=== PATIENT | male | born 1935 | race Hispanic/Latino ===

== ENCOUNTER 2018-04-27 16:04 | Emergency (ER) | payer MEDICARE ==
[~2018-04-27] VITALS: Ht 172.7 cm; Wt 111.1 kg
[~2018-04-27 16:04] MED LIST: ASPIRIN325 MG PO; FERROUS SULFAT325 MG PO; GLYBURIDE METF PO; Z ALTACE PO; Z.0.ACTOS30 MG PO; Z.0.COUMADIN5 MG PO; Z.0.LASIX20 MG; Z.0.LIPITOR20 MG PO; Z.0.METOPROLOL SUCC5 PO
--- OUTSIDE RECORDS SUMMARY | 2018-04-27 16:07 | XMS REPORT ---
[facility] Address Unknown Phone Unavailable Care Team Providers Care Dsp Engineer Name Role Phone Unavailable Unavailable Problems This patient has no known problems. Allergies, Adverse Reactions, Alerts This patient has no known allergies or adverse reactions. Medications This patient has no known medications. Encounters Start Date/Time End Date/Time Encounter Type Admission Type Attending [facility] Care Department Encounter ID 2018-06-07 00:00:00 2018-06-07 00:00:00 Outpatient [facility] [id number] 2018-04-26 15:04:13 2018-04-26 15:04:13 Outpatient [facility] [id number] 2018-02-14 12:34:30 2018-02-14 12:34:30 Outpatient [facility] [id number] 2017-10-24 14:57:29 2017-10-24 14:57:29 Outpatient [facility] [id number] 2017-09-20 10:42:41 2017-09-20 10:42:41 Outpatient [facility] [id number] 2017-08-09 13:06:54 2017-08-09 13:06:54 Outpatient [facility] [id number] 2017-07-27 12:01:06 2017-07-27 12:01:06 Outpatient [facility] [id number] 2017-07-26 10:56:44 2017-07-26 10:56:44 Outpatient [facility] [id number] 2017-06-01 09:06:41 2017-06-01 09:06:41 Outpatient [facility] [id number] 2017-06-01 08:07:39 2017-06-01 08:07:39 Outpatient [facility] [id number] 2017-05-31 10:26:15 2017-05-31 10:26:15 Outpatient [facility] [id number] 2017-02-16 10:10:15 2017-02-16 10:10:15 Outpatient [facility] [id number] 2017-01-19 07:29:44 2017-01-19 07:29:44 Outpatient [facility] [id number] 2017-01-11 00:00:00 2017-01-11 00:00:00 Outpatient [facility] [id number] 2017-01-10 07:35:08 2017-01-10 07:35:08 Outpatient [facility] [id number] 2017-01-09 07:27:00 2017-01-09 07:27:00 Outpatient [facility] [id number] 2017-01-06 07:35:56 2017-01-06 07:35:56 Outpatient [facility] [id number] 2016-12-23 00:00:00 2016-12-23 00:00:00 Outpatient [facility] [id number] 2016-12-19 10:00:35 2016-12-19 10:00:35 Outpatient [facility] [id number] 2016-12-16 11:33:34 2016-12-16 11:33:34 Outpatient [facility] [id number] 2016-12-16 10:35:41 2016-12-16 10:35:41 Outpatient [facility] [id number]
--- OUTSIDE RECORDS SUMMARY | 2018-04-27 16:07 | XMS REPORT | Clinical Summary ---
Author Author [facility] Organization [facility] Address Unknown Phone Unavailable Care Team Providers Care Tobacco Curer Name Role Phone PCP Unavailable Allergies Not on File Medications Not on file Active Problems Not on file Social History Date Tobacco Use Types Packs/Day Years Used Never Assessed Sex Assigned at Date Recorded Not on file Industry Job Start Date Occupation Not on file Not on file Not on file Travel End Travel History Travel Start No recent travel history available. Last Filed Vital Signs Not on file Plan of Treatment Not on file Results Not on fileafter 04/26/2017 Insurance Payer Benefit Subscriber ID Type Phone Address Plan / Group MEDICARE MEDICARE A xxxxxxxxxx Medicare B
[2018-04-27] MEDS ORDERED: HYDROCODONE/APAP 5MG-325MG TAB PO ONE (17:15)
--- NOTE | 2018-04-27 18:34 | Diagnostic Imaging Report ---
Exam: Right Knee Series. History: Right knee pain Comparison: None. Findings: 3 views of the right knee. There is decreased bone mineralization. Negative for acute, displaced fracture or dislocation. Mild degenerative joint disease, with presence of small osteophytes in the patella. Questionable thin linear calcification in the femorotibial joint space, which may reflect mild chondrocalcinosis. Extensive vascular calcifications. No lytic or blastic lesions. No effusions or soft tissue swelling. Impression: 1. Mild degenerative joint disease. Mild chondrocalcinosis. No acute abnormalities. Signed by: Dr. Lamine Burch M.D. on 04/27/2018 6:31 PM
[2018-04-27] MEDS ORDERED: IBUPROFEN 600 MG TAB PO ONE (20:37)
[2018-04-27 20:51] VITALS: BP 152/61
== END 2018-04-27 20:56 | disposition home or self-care (01) ==
LOC: ER 16:04
DX: M25.561 Pain in right knee (principal); M13.861 Other specified arthritis, right knee; I10 Essential (primary) hypertension; E11.9 Type 2 diabetes mellitus without complications
CPT/HCPCS: 99283

== ENCOUNTER → 2018-05-28 | Outpatient (CLI) | payer MEDICARE ==
--- NOTE | 2018-05-28 12:52 | Diagnostic Imaging Report ---
TECHNIQUE: Magnetic resonance imaging of the RIGHT KNEE was performed WITHOUT injected contrast. HISTORY: Peripheral tear of medial meniscus, pain COMPARISON: Right knee radiographs April 27, 2018. FINDINGS: LIGAMENTS AND TENDONS: ACL: Intact PCL: Intact Collateral ligaments: Intact Iliotibial band: Unremarkable Popliteal tendon: Intact Extensor mechanism: Intact JOINT: Menisci: Medial: Predominantly oblique complex tear near the junction of the body and posterior horn, results in focal high-grade attenuation Lateral: Mild free margin fibrillation. A 6 mm linear fragment from the anterior horn flipped anterior to the anterior cruciate ligament ( series 3 image 27 and series 5 image 12). Articular Cartilage: Medial Compartment: Intermediate to high-grade erosions adjacent to the meniscal tear. Lateral Compartment: No focal defect. Patellofemoral Compartment: Low-grade erosion of the lateral patellar facet. Joint Fluid: Small nonspecific effusion with associated mildly distended multilobulated Sandra's cyst. BONES: No focal or infiltrative bone marrow replacing abnormality. No acute fracture. Mild lateral tilt and translation of the patella. SOFT TISSUES: Otherwise, unremarkable. IMPRESSION: 1. Focal complex tear of the medial meniscus. 2. Small tear with associated 6 mm displaced fragment from the anterior horn of the lateral meniscus. 3. Mild medial compartment predominant osteoarthrosis. Signed by: Dr. Tomi Lopez D.O., M.M.M. on 05/28/2018 12:49 PM
== END ==
LOC: MRI 11:12
PROVIDERS: ATTEND Specialist
DX: S83.221A Peripheral tear of medial meniscus, current injury, right knee, initial encounter (principal)

== ENCOUNTER 2022-01-24 18:48 | Emergency (ER) | payer MEDICARE ==
[~2022-01-24] VITALS: Ht 172.7 cm; Wt 111.1 kg
[2022-01-24] MEDS ORDERED: CYCLOBENZAPRINE HCL 10 MG TAB PO ONE (19:30)
[2022-01-24] MEDS ORDERED: HYDROCODONE/APAP 5MG-325MG TAB PO ONE (19:30)
[2022-01-24] MEDS ORDERED: TRAMADOL HCL 50 MG TAB PO STA (22:26)
[2022-01-24] MEDS ORDERED: ULTRAM 50MG50 MG PO (22:28)
[2022-01-24] MEDS ORDERED: TRAMADOL HCL 50 MG TAB ONE (22:42)
== END 2022-01-24 23:00 | disposition home or self-care (01) ==
LOC: ER 18:56
DX: M54.50 Low back pain, unspecified (principal); I10 Essential (primary) hypertension; E11.9 Type 2 diabetes mellitus without complications; E78.5 Hyperlipidemia, unspecified; Z95.810 Presence of automatic (implantable) cardiac defibrillator
CPT/HCPCS: 72131; 99283